=== PATIENT | male | born 1990 | race Caucasian/White ===

== ENCOUNTER 2021-04-03 19:30 | Emergency (ER) | payer BC, OTHER ==
[~2021-04-03] VITALS: Ht 160 cm; Wt 59.0 kg
[2021-04-03] MEDS ORDERED: CYCL10 PO (20:58)
== END 2021-04-03 21:08 | disposition home or self-care (01) ==
LOC: ER 19:30
DX: R07.89 Other chest pain (principal)
CPT/HCPCS: 71046; 99283-25; A9270

== ENCOUNTER 2021-06-01 18:51 | Emergency (ER) | payer BC ==
[~2021-06-01] VITALS: Ht 162.6 cm; Wt 63.5 kg
[~2021-06-01 18:51] MED LIST: CYCL10 PO
[2021-06-01] MEDS ORDERED: CYCL10 PO (20:58)
== END 2021-06-01 21:12 | disposition home or self-care (01) ==
LOC: ER 18:51
DX: S83.005A Unspecified dislocation of left patella, initial encounter (principal); X50.1XXA Overexertion from prolonged static or awkward postures, initial encounter
CPT/HCPCS: 27560; 73560-LT; 73562-LT; 96374-59; 96375-59; 99283-25; J2060; J2405; J3010